=== PATIENT | male | born 1980 | race Hispanic/Latino ===

== ENCOUNTER 2019-04-30 15:56 | Emergency (ER) | payer SELFPAY ==
--- OUTSIDE RECORDS SUMMARY | 2019-04-30 15:59 | XMS REPORT ---
:1980 [facility] Address [address] [place] [address] Dr. Maza [address] [place] [id number] Care Team Providers Name Role Phone Unavailable Unavailable Unavailable Problems This patient has no known problems. Allergies, Adverse Reactions, Alerts This patient has no known allergies or adverse reactions. Medications This patient has no known medications.
[2019-04-30 16:38] LABS: Hematocrit 45.8 % (39.6-49.0); Lymphocytes % 28.4 % (15.3-44.8); MPV 9.6 fL (7.6-11.3); RBC Red Blood Cell Count 5.07 M/uL (4.33-5.43)
[2019-04-30 16:46] LABS: Protime INR 1.08
--- NOTE | 2019-04-30 17:00 | RAD REPORT ---
EXAM DESCRIPTION: Nabeel Single View04/30/2019 4:39 pm CLINICAL HISTORY: Chest pain COMPARISON: none FINDINGS: The lungs appear clear of acute infiltrate. The heart is normal size IMPRESSION: No acute abnormalities displayed
[2019-04-30 17:01] LABS: ALT/SGPT 100 U/L (12-78); AST/SGOT 42 U/L (15-37); Albumin 3.5 g/dL (3.4-5.0); Alkaline Phosphatase 32 U/L (45-117); BUN Blood Urea Nitrogen 19 mg/dL (7-18); Bicarbonate 23 mmol/L (21-32); Bilirubin Direct 0.2 mg/dL (0-0.2); Bilirubin Total 0.4 mg/dL (0.2-1.0); Glucose Level 114 mg/dL (74-106); Magnesium 2.2 mg/dL (1.8-2.4); Potassium 3.6 mmol/L (3.5-5.1); Sodium Level 141 mmol/L (136-145); Troponin (Emerg Dept Use Only) < 0.02 ng/mL (0.0-0.045)
[2019-04-30 17:07] LABS: NT PRO-BNP < 5 pg/mL (<125)
[2019-04-30] MEDS ORDERED: NA CHLORIDE 0.9% 1,000 ML ONE ×2 (17:25→20:43)
[2019-04-30] MEDS ORDERED: ONDANSETRON 4 MG/2 ML VIAL ONE (17:26)
[2019-04-30 18:08] LABS: Barbiturates NEGATIVE (NEGATIVE); Benzodiazepines NEGATIVE (NEGATIVE); Cocaine NEGATIVE (NEGATIVE); METHAMPHETAM POSITIVE (NEGATIVE); Methadone NEGATIVE (NEGATIVE); Opiates NEGATIVE (NEGATIVE); Phencyclidine NEGATIVE (NEGATIVE); THC Cannibis NEGATIVE (NEGATIVE)
[2019-04-30 18:28] LABS: Urine Blood NEGATIVE (NEG); Urine Glucose NEGATIVE (NEG); Urine Protein TRACE (NEG); Urine Specific Gravity >1.030 (1.005-1.030)
--- NOTE | 2019-04-30 23:27 | EDPHYS ---
Physician Documentation [facility] Name: Kristopher Garrett Jr Age: 38 yrs Sex: Male : 1980 Arrival Date: 04/30/2019 Time: 16:09 Bed 16 Private MD: ED Physician Elkin Banegas HPI: 04/29 16:19 This 38 yrs old Male presents to ER via Unassigned with complaints of chest cp pain. 16:19 The patient or guardian reports chest pain that is located primarily in the anterior cp aspect of left upper chest. The pain does not radiate. The chest pain is described as sharp. Duration: The patient or guardian reports a single episode, that is still ongoing, but improving. Severity of pain: in the emergency department the pain is a 4 / 10. EMS care prior to arrival includes: aspirin, nitroglycerin, x 1, with partial relief of the chest pain. Patient admits to injecting methamphetamine over the past several days, starting on Sunday. Denies use of methamphetamine today. Historical: - Allergies: 16:09 No Known Allergies; ls4 - Home Meds: 16:09 None [Active]; ls4 - PMHx: 16:09 hemorrhoids; ls4 - PSHx: 16:09 None; ls4 - Immunization history:: Adult Immunizations up to date. - Social history:: Smoking status: Patient denies any tobacco usage or history of. ROS: 16:30 Eyes: Negative for injury, pain, redness, and discharge. cp 16:30 Constitutional: Negative for body aches, chills, fever, poor PO intake. 16:30 ENT: Negative for drainage from ear(s), ear pain, sore throat, difficulty swallowing, difficulty handling secretions. 16:30 Cardiovascular: Positive for chest pain, of the anterior aspect of left upper chest, Negative for edema, palpitations. 16:30 Respiratory: Positive for shortness of breath, Negative for cough, wheezing. 16:30 Abdomen/GI: Negative for abdominal pain, nausea, vomiting, and diarrhea. 16:30 Back: Negative for radiated pain. 16:30 Neuro: Negative for altered mental status, headache, numbness, syncope, weakness. 16:30 All other systems are negative. Exam: 16:05 ECG was reviewed by the Attending Physician. cp 16:35 Constitutional: The patient appears in no acute distress, alert, awake, cp non-diaphoretic, non-toxic, well developed, well nourished. 16:35 Head/Face: Normocephalic, atraumatic. Eyes: Pupils equal round and reactive to light, cp extra-ocular motions intact. Lids and lashes normal. Conjunctiva and sclera are non-icteric and not injected. Cornea within normal limits. Periorbital areas with no swelling, redness, or edema. ENT: Nares patent. No nasal discharge, no septal abnormalities noted. Tympanic membranes are normal and external auditory canals are clear. Oropharynx with no redness, swelling, or masses, exudates, or evidence of obstruction, uvula midline. Mucous membranes moist. Neck: Trachea midline, no thyromegaly or masses palpated, and no cervical lymphadenopathy. Supple, full range of motion without nuchal rigidity, or vertebral point tenderness. No Meningismus. Chest/axilla: Normal chest wall appearance and motion. Nontender with no deformity. No lesions are appreciated. 16:35 Cardiovascular: Rate: normal, Rhythm: regular, Heart sounds: murmur, not appreciated, rub, not appreciated, gallop, not appreciated, Edema: is not appreciated, JVD: is not appreciated. 16:35 Respiratory: the patient does not display signs of respiratory distress, Respirations: normal, no use of accessory muscles, labored breathing, is not present, Breath sounds: are clear throughout, no decreased breath sounds, no wheezing. 16:35 Abdomen/GI: Inspection: abdomen appears normal, Bowel sounds: active, all quadrants, Palpation: abdomen is soft and non-tender, in all quadrants, rebound tenderness, is not appreciated, involuntary guarding, is not appreciated. 16:35 Back: pain, is absent, ROM is normal. 16:35 Skin: cellulitis, is not appreciated, no rash present. 16:35 Neuro: Orientation: to person, place \T\ time. Mentation: is normal, Cerebellar function: is grossly normal, Motor: moves all fours, strength is normal, Sensation: is normal. Vital Signs: 16:09 BP 115 / 78; Pulse 76; Resp 14; Pulse Ox 99% on R/A; Weight 117.93 kg; Height 5 ft. 9 ls4 in. (175.26 cm); Pain 3/10; 16:09 BP 118 / 77; Pulse 78; Resp 14; Pulse Ox 99% on R/A; Pain 3/10; ls4 20:00 BP 122 / 74; Pulse 76; Resp 14; Pulse Ox 99% on R/A; Pain 0/10; ls4 22:00 BP 117 / 66; Pulse 72; Resp 14; Pulse Ox 99% on R/A; Pain 0/10; ls4 23:00 BP 118 / 72; Pulse 72; Resp 14; Pulse Ox 99% on R/A; Pain 0/10; ls4 03/12 00:05 BP 122 / 70; Pulse 72; Resp 16; Temp 98.0(O); Pulse Ox 99% on R/A; Pain 0/10; ls4 06:18 BP 139 / 101; Pulse 79; Resp 16; Temp 97.7; Pulse Ox 99% on R/A; Pain 0/10; aa1 04/29 16:09 Body Mass Index 38.39 (117.93 kg, 175.26 cm) ls4 MDM: 04/29 16:15 Patient medically screened. cp 16:30 Differential diagnosis: abnormal EKG, acute myocardial infarction, acute pericarditis, cp cholecystitis, Cholelithiasis pancreatitis, pleurisy, pneumonia, pneumothorax, stable angina, unstable angina. 20:15 Data reviewed: vital signs, nurses notes, lab test result(s), EKG, radiologic studies, cp plain films. 20:15 Response to treatment: the patient's symptoms have markedly improved after treatment. cp 23:20 ED course: Patient evaluated by [facility] due to statements made that he was cp attempting to overdose on methamphetamine over the weekend. Inpatient treatment recommended. 04/29 16:10 Order name: Basic Metabolic Panel; Complete Time: 17:10 la04/29 17:10 Interpretation: Normal except: CL 110; GLUC 114; BUN 19; GFR 65. 04/29 16:10 Order name: CBC with Diff; Complete Time: 16:54 la04/29 16:54 Interpretation: Reviewed. 04/29 16:10 Order name: LFT's; Complete Time: 17:10 la 04/29 17:10 Interpretation: Normal except: AST 42; ALT 100; ALK 32; A/G 1.0. 04/29 16:10 Order name: Magnesium; Complete Time: 17:10 la04/29 16:10 Order name: NT PRO-BNP; Complete Time: 17:10 la04/29 16:10 Order name: PT-INR; Complete Time: 17:10 la04/29 16:10 Order name: Troponin (emerg Dept Use Only); Complete Time: 17:10 nc04/29 16:10 Order name: XRAY Chest (1 view); Complete Time: 17:10 nc04/29 16:10 Order name: UDS; Complete Time: 18:12 la04/29 18:12 Interpretation: Normal except: METHAMPHETAMINE POSITIVE. cp 04/29 16:16 Order name: ETOH Level; Complete Time: 17:28 cp 04/29 16:16 Order name: Asprin; Complete Time: 17:28 cp 04/29 16:16 Order name: Tylenol Level; Complete Time: 17:28 cp 04/29 18:21 Order name: Urine Dipstick--Ancillary (enter results); Complete Time: 18:53 nc04/29 18:54 Interpretation: Normal except: USPGR >1.030. cp 04/29 20:08 Order name: Troponin I; Complete Time: 20:44 cp 04/29 20:44 Interpretation: Within normal limits: TROP < 0.02. cp 04/29 16:10 Order name: EKG; Complete Time: 16:13 nc04/29 16:10 Order name: Cardiac monitoring; Complete Time: 16:52 nc04/29 16:10 Order name: EKG - Nurse/Tech; Complete Time: 16:52 nc04/29 16:10 Order name: IV Saline Lock; Complete Time: 16:52 nc04/29 16:10 Order name: Labs collected and sent; Complete Time: 16:52 nc04/29 16:10 Order name: O2 Per Protocol; Complete Time: 16:53 nc04/29 16:10 Order name: O2 Sat Monitoring; Complete Time: 16:53 nc04/29 20:08 Order name: EKG; Complete Time: 20:08 cp 04/30 07:21 Order name: Diet Regular; Complete Time: 07:21 5 04/30 07:39 Order name: Diet Finger Food; Complete Time: 07:40 5 04/30 12:09 Order name: Diet Finger Food; Complete Time: 12:09 mg2 04/30 14:12 Order name: Diet Finger Food; Complete Time: 14:15 mh5 04/29 17:29 Order name: Vital Signs; Complete Time: 17:47 cp 04/29 17:29 Order name: Blood Pressure Recheck: bilateral upper extremity; Complete Time: 17:47 cp 04/29 20:08 Order name: EKG - Nurse/Tech; Complete Time: 20:33 cp EC:05 Rate is 111 beats/min. Rhythm is regular. PA interval is normal. QRS interval is cp normal. QT interval is normal. Interpreted by me. Reviewed by me. Administered Medications: 17:05 Drug: Zofran (Ondansetron) 4 mg Route: IVP; Site: left antecubital; ls4 20:34 Follow up: Response: No adverse reaction ls4 17:06 Drug: NS 0.9% 1000 ml Route: IV; Rate: 1 bolus; Site: left antecubital; ls4 18:10 Follow up: IV Status: Completed infusion; IV Intake: 1000ml ls4 20:07 Not Given (Patient Refused): fentaNYL (PF) 25 mcg IVP once; RASS on ADMIN: Combtv4, ls4 Very Agttd3, Agttd2, Rstlss1, AlertClm0, Drwsy-1, Lt Sdtn-2, Mod Sdtn-3, Dp Sdtn-4, UnArsble-5 20:40 Drug: NS 0.9% 1000 ml Route: IV; Rate: 1000 ml/hr; Site: right antecubital; ls4 21:40 Follow up: IV Status: Completed infusion; IV Intake: 100ml ls4 Disposition: 04/30 07:09 Co-signature as Attending Physician, Elkin Banegas MD I agree with the assessment and kdr plan of care. Disposition: 05/01/19 15:57 Discharged to Home. Impression: Suicidal ideations, Suicide attempt, Abuse of non-psychoactive substances. - Condition is Stable. - Discharge Instructions: Suicidal Feelings: How to Help Yourself, Helping Someone Who is Suicidal, Nonspecific Chest Pain, [id number], Stress and Stress Management. - Medication Reconciliation Form, Thank You Letter form. - Follow up: Private Physician; When: 1 - 2 days; Reason: If symptoms return, Further diagnostic work-up, Recheck today's complaints, Continuance of care, Re-evaluation by your physician. - Problem is new. - Symptoms are resolved. Signatures: Dispatcher [employer] Elkin Estrada MD MD kdr Ad Sanders, DENNIS-C YARD SPECIALIST-Cla1 Tay Alonso PA PA cp Hardik Carranza, RN RN mg2 Lana Waggoner RN RN ls4 Corrections: (The following items were deleted from the chart) 15:53 04/29 23:26 04/30/2019 23:26 Transfer ordered to Psych Facility. Diagnosis is Suicidal kdr ideations. Reason for transfer: Higher level of care. Accepting physician is doctor. Condition is Stable. Problem is new. Symptoms have improved. cp 04/30 15:56 15:53 04/30/2019 23:26 Transfer ordered to Psych Facility. Diagnosis is Suicidal kdr ideations; Abuse of non-psychoactive substances. Reason for transfer: Higher level of care. Accepting physician is doctor. Condition is Stable. Problem is new. Symptoms have improved. kdr 16:11 15:57 05/01/2019 15:57 Discharged to Home. Impression: Suicidal ideations; Suicide mg2 attempt; Abuse of non-psychoactive substances. Condition is Stable. Forms are Medication Reconciliation Form, Thank You Letter, Antibiotic Education, Prescription Opioid Use. Follow up: Private Physician; When: 1 - 2 days; Reason: If symptoms return, Further diagnostic work-up, Recheck today's complaints, Continuance of care, Re-evaluation by your physician. Problem is new. Symptoms are resolved. kdr
--- NOTE | 2019-04-30 23:27 | ER ---
Nurse's Notes [facility] Name: Kristopher Garrett Jr Age: 38 yrs Sex: Male : 1980 Arrival Date: 04/30/2019 Time: 16:09 Bed 16 Private MD: Diagnosis: Suicidal ideations;Suicide attempt;Abuse of non-psychoactive substances Presentation: 04/29 16:09 Chief complaint: Patient states: PT STATES HE HAS CHEST PAIN AFTER DOING LARGE AMOUNTS ls4 OF METHAMPHETAMINE ALL WEEKEND. PT TOLD EMS THAT HE WAS ONLY DOING THE METH SO THAT HE COULD KILL HIMSELF. PT STATES TO ME THAT HE WAS SUICIDAL SO HE DID METH, BUT NOW HIS CHEST HURTS AND HE IS WORRIED HE IS HAVING A HEART ATTACK. Coronavirus screen: The patient has NOT traveled to a country currently being monitored by the CDC within the last 14 days. Proceed with normal triage procedures. Ebola Screen: Unable to complete the Ebola screening because:. 16:09 Method Of Arrival: EMS: [facility] ls4 16:09 Initial Sepsis Screen: Does the patient meet any 2 criteria? No. Patient's initial ls4 sepsis screen is negative. Does the patient have a suspected source of infection? No. Patient's initial sepsis screen is negative. Risk Assessment: Do you want to hurt yourself or someone else? Patient reports no desire to harm self or others. Other: PT STATES HE IS NOT SUICIDAL OR HOMICIDAL AT THIS TIME, BUT HE DID HAVE THOUGHTS LAST WEEKEND SO HE DID LARGE AMOUNTS OF METH A MEANS TO KILL HIMSELF. NOW HE PRESENTS WITH CHEST PAIN AND IS ASKING TO BE TRANSFERRED TO [facility] FOR SUICIDAL THOUGHTS. 16:09 Acuity: HUNTER 2 ls4 16:09 Care prior to arrival: IV initiated. 20 GA, in the right antecubital area. ls4 Triage Assessment: 16:09 General: Appears in no apparent distress. comfortable, Behavior is calm, cooperative. ls4 Pain: Complains of pain in anterior aspect of left upper chest Pain does not radiate. Quality of pain is described as sharp, shooting. Neuro: No deficits noted. Cardiovascular: No deficits noted. Cardiovascular: Reports chest pain, Denies diaphoresis, fatigue, lightheadedness, nausea, palpitations, shortness of breath, syncope, vomiting, Capillary refill < 3 seconds Clubbing of nail beds is absent JVD is absent Patient's skin is warm and dry. Rhythm is regular. Respiratory: Respiratory effort is even, unlabored, Respiratory pattern is regular. GI: No deficits noted. : No deficits noted. Derm: No deficits noted. Derm: Skin is intact, Skin is dry, Skin is normal, Skin temperature is warm. Musculoskeletal: No deficits noted. Historical: - Allergies: 16:09 No Known Allergies; ls4 - Home Meds: 16:09 None [Active]; ls4 - PMHx: 16:09 hemorrhoids; ls4 - PSHx: 16:09 None; ls4 - Immunization history:: Adult Immunizations up to date. - Social history:: Smoking status: Patient denies any tobacco usage or history of. Screenin:09 Abuse screen: Denies threats or abuse. Denies injuries from another. Nutritional ls4 screening: No deficits noted. Tuberculosis screening: No symptoms or risk factors identified. Fall Risk None identified. Assessment: 18:46 General: SEE TRIAGE NOTE SITTER AT BEDSIDE. SUICIDE PRECAUTIONS INTITIATED. SEE PAPER ls4 FLOW SHEET, BELONGINGS LIST. PT IN PAPER GOWN. PT IN NO DISTRESS. SMILING AND ENGAGING WITH GUESTS AND STAFF. . 20:00 Reassessment: Patient appears in no apparent distress at this time. Patient and/or ls4 family updated on plan of care and expected duration. Pain level reassessed. Patient is alert, oriented x 3, equal unlabored respirations, skin warm/dry/pink. Patient denies pain at this time. 21:00 Reassessment: Patient appears in no apparent distress at this time. Patient and/or ls4 family updated on plan of care and expected duration. Pain level reassessed. Patient is alert, oriented x 3, equal unlabored respirations, skin warm/dry/pink. Patient denies pain at this time. 22:00 Reassessment: Patient appears in no apparent distress at this time. Patient and/or ls4 family updated on plan of care and expected duration. Pain level reassessed. Patient is alert, oriented x 3, equal unlabored respirations, skin warm/dry/pink. 23:00 Reassessment: Patient appears in no apparent distress at this time. Patient and/or ls4 family updated on plan of care and expected duration. Pain level reassessed. Patient is alert, oriented x 3, equal unlabored respirations, skin warm/dry/pink. 23:59 Reassessment: Patient appears in no apparent distress at this time. Patient and/or ls4 family updated on plan of care and expected duration. Pain level reassessed. Patient is alert, oriented x 3, equal unlabored respirations, skin warm/dry/pink. 04/30 00:01 Reassessment: SITTER AT BEDSIDE. FAMILY AT BEDSIDE. Reassessment: SITTER AT BEDSIDE. ls4 FAMILY IN ROOM. 02:45 Reassessment: Patient appears in no apparent distress at this time. Patient and/or aa1 family updated on plan of care and expected duration. Pain level reassessed. Patient is alert, oriented x 3, equal unlabored respirations, skin warm/dry/pink. Pt moved to room 16 from Pod 1 at this time. Sitter at bedside. Pt resting quietly. Awaiting psych transfer. 03:45 Reassessment: Patient appears in no apparent distress at this time. Sitter at bedside. aa1 Pt resting quietly. Awaiting psych transfer. 04:45 Reassessment: Patient appears in no apparent distress at this time. Sitter at bedside. aa1 Pt resting quietly. Awaiting psych transfer. 05:45 Reassessment: Patient appears in no apparent distress at this time. Sitter at bedside. aa1 Pt resting quietly. Awaiting psych transfer. 07:00 General: Appears in no apparent distress. uncomfortable, Behavior is calm, cooperative, jl7 appropriate for age. Pain: Denies pain. Neuro: Level of Consciousness is awake, alert, obeys commands, Oriented to person, place, time, situation. Cardiovascular: Patient's skin is warm and dry. Respiratory: Airway is patent Respiratory effort is even, unlabored, Respiratory pattern is regular, symmetrical. Derm: Skin is pink, warm \T\ dry. 08:00 Reassessment: Patient appears in no apparent distress at this time. No changes from jl7 previously documented assessment. Patient and/or family updated on plan of care and expected duration. Pain level reassessed. Patient is alert, oriented x 3, equal unlabored respirations, skin warm/dry/pink. 09:00 Reassessment: Patient appears in no apparent distress at this time. No changes from jl7 previously documented assessment. Patient and/or family updated on plan of care and expected duration. Pain level reassessed. Patient is alert, oriented x 3, equal unlabored respirations, skin warm/dry/pink. 10:00 Reassessment: Patient appears in no apparent distress at this time. patient sleeping on mg2 bed. 11:03 Reassessment: Patient appears in no apparent distress at this time. Patient and/or mg2 family updated on plan of care and expected duration. Pain level reassessed. Patient is alert, oriented x 3, equal unlabored respirations, skin warm/dry/pink. 12:04 Reassessment: Patient appears in no apparent distress at this time. Patient is alert, mg2 oriented x 3, equal unlabored respirations, skin warm/dry/pink. sitter at bedside. 13:00 Reassessment: Patient appears in no apparent distress at this time. Patient and/or mg2 family updated on plan of care and expected duration. Pain level reassessed. Patient is alert, oriented x 3, equal unlabored respirations, skin warm/dry/pink. 13:58 Reassessment: Patient appears in no apparent distress at this time. Patient and/or mg2 family updated on plan of care and expected duration. Pain level reassessed. Patient is alert, oriented x 3, equal unlabored respirations, skin warm/dry/pink. 15:00 Reassessment: Patient appears in no apparent distress at this time. Patient is alert, mg2 oriented x 3, equal unlabored respirations, skin warm/dry/pink. Vital Signs: 04/29 16:09 BP 115 / 78; Pulse 76; Resp 14; Pulse Ox 99% on R/A; Weight 117.93 kg; Height 5 ft. 9 ls4 in. (175.26 cm); Pain 3/10; 16:09 BP 118 / 77; Pulse 78; Resp 14; Pulse Ox 99% on R/A; Pain 3/10; ls4 20:00 BP 122 / 74; Pulse 76; Resp 14; Pulse Ox 99% on R/A; Pain 0/10; ls4 22:00 BP 117 / 66; Pulse 72; Resp 14; Pulse Ox 99% on R/A; Pain 0/10; ls4 23:00 BP 118 / 72; Pulse 72; Resp 14; Pulse Ox 99% on R/A; Pain 0/10; ls4 04/30 00:05 BP 122 / 70; Pulse 72; Resp 16; Temp 98.0(O); Pulse Ox 99% on R/A; Pain 0/10; ls4 06:18 BP 139 / 101; Pulse 79; Resp 16; Temp 97.7; Pulse Ox 99% on R/A; Pain 0/10; aa1 03 16:09 Body Mass Index 38.39 (117.93 kg, 175.26 cm) ls4 ED Course: 04/29 16:09 Patient arrived in ED. bd 16:09 Tay Alonso PA is PHCP. cp 16:09 Elkin Banegas MD is Attending Physician. cp 16:09 Patient has correct armband on for positive identification. Bed in low position. Side ls4 rails up X 1. Valuables inventory done. Given to family. SITTER SHANTELL AT BEDSIDE. naval gunfire liaison officer on. Pulse ox on. NIBP on. Sitter at bedside. 16:09 No provider procedures requiring assistance completed. Inserted saline lock: 20 gauge ls4 in left antecubital area, using aseptic technique. Patient maintains SpO2 saturation greater than 95% on room air. 16:32 Lana Waggoner, RN is Primary Nurse. ls4 16:41 XRAY Chest (1 view) In Process Unspecified. EDMS 17:21 pt belongings went home with juwan Pt sister. ms 18:11 Triage completed. ls4 18:20 Patient BELONGINGS REMOVED. PT NEXT TO NURSES STATION IN VIEW. FAMILY AT BEDSIDE. ls4 SITTER AT BEDSIDE 1520. 20:31 called [facility] spoke to Lor she will be sending a screener to see patient. mw2 03 10:[facility] a [facility]. still waiting on discharges. 11:03 Assisted to bathroom. mg2 15:46 notified [facility] to send screener back to reassess pt. bd 16:11 IV discontinued, intact, bleeding controlled, No redness/swelling at site. Pressure mg2 dressing applied. Administered Medications: 04/29 17:05 Drug: Zofran (Ondansetron) 4 mg Route: IVP; Site: left antecubital; ls4 20:34 Follow up: Response: No adverse reaction ls4 17:06 Drug: NS 0.9% 1000 ml Route: IV; Rate: 1 bolus; Site: left antecubital; ls4 18:10 Follow up: IV Status: Completed infusion; IV Intake: 1000ml ls4 20:07 Not Given (Patient Refused): fentaNYL (PF) 25 mcg IVP once; RASS on ADMIN: Combtv4, ls4 Very Agttd3, Agttd2, Rstlss1, AlertClm0, Drwsy-1, Lt Sdtn-2, Mod Sdtn-3, Dp Sdtn-4, UnArsble-5 20:40 Drug: NS 0.9% 1000 ml Route: IV; Rate: 1000 ml/hr; Site: right antecubital; ls4 21:40 Follow up: IV Status: Completed infusion; IV Intake: 100ml ls4 Intake: 18:10 IV: 1000ml; Total: 1000ml. ls4 21:40 IV: 100ml; Total: 1100ml. ls4 Outcome: 23:26 ER care complete, transfer ordered by MD. cp 04/30 15:57 Discharge ordered by MD. kdr 16:10 Discharged to home ambulatory, with family. mg2 16:10 Condition: stable 16:10 Discharge instructions given to patient, family, Instructed on discharge instructions, follow up and referral plans. Demonstrated understanding of instructions, follow-up care. 16:11 Patient left the ED. mg2 Signatures: Dispatcher [employer] EDMS Sabine Means Alissa, RN RN aa1 Elkin Banegas MD MD kdr Villarreal, Maria ms Tay Alonso, ROCIO PA cp Susy Aguero RN RN jl7 Trudi Byrnes 2 Hardik Carranza RN RN mg2 Lana Waggoner RN RN ls4 Corrections: (The following items were deleted from the chart) 00:03 04/29 18:46 General: SEE TRIAGE NOTE . ls4 ls4
--- NOTE | 2019-05-01 08:52 | EKG ---
Test Date: 2019-04-30 Test Time: 15:51:42 Armored Machine Operator: LASHELL MEASUREMENT RESULTS: Intervals: Rate: 111 CO: 136 QRSD: 96 QT: 342 QTc: 465 [place]: P: 57 CO: 136 QRS: 69 T: -7 INTERPRETIVE STATEMENTS: Sinus tachycardia Abnormal QRS-T angle, consider primary T wave abnormality Abnormal ECG No previous ECG available for comparison Electronically Signed On 05-01-19 08:50:41 CDT by Po Ellis
--- NOTE | 2019-05-01 08:52 | EKG ---
Test Date: 2019-04-30 Test Time: 20:13:09 Rural Electrification Engineer: LANI MEASUREMENT RESULTS: Intervals: Rate: 85 ME: 146 QRSD: 104 QT: 370 QTc: 440 [place]: P: 55 ME: 146 QRS: 55 T: -5 INTERPRETIVE STATEMENTS: Normal sinus rhythm Nonspecific T wave abnormality Abnormal ECG No previous ECG available for comparison Electronically Signed On 05-01-19 08:50:33 CDT by Po Ellis
[2019-05-01 17:12] VITALS: O2SAT 99
[2019-05-01 17:21] VITALS: BP 139/101; TEMP 97.7
== END 2019-05-01 16:11 | disposition home or self-care (01) ==
LOC: ER 15:56
DX: T43.622A Poisoning by amphetamines, intentional self-harm, initial encounter (principal); R07.9 Chest pain, unspecified; F55.8 Abuse of other non-psychoactive substances
CPT/HCPCS: 36415; 71045; 80048; 80076; 80307; 80320; 80329; 81003; 83735; 83880; 84484; 85025; 85610; 93005; 96361; 96374; 99285; J2405; J7030

== ENCOUNTER → 2023-04-10 | Emergency (ER) | payer SELFPAY ==
[~2023-04-10] MED LIST: HYDRALAZINE HCL 20 MG/ML VIAL ONE; LORazepam 2 MG/ML VIAL ONE; METOPROLOL TARTRATE 5 MG/5 ML INJ IV ONE; NA CHLORIDE 0.9% 2,000 ML ONE
[2023-04-10 20:36] LABS: Absolute Lymphocytes (CBC) 3.6 K/uL (0.7-4.9); Hematocrit 48.2 % (39.6-49.0); Lymphocytes % 34.9 % (15.3-44.8); MCV 90.9 fL (80-100); MPV 8.8 fL (7.6-11.3); Platelets 316 thou/uL (152-406); RBC Red Blood Cell Count 5.31 M/uL (4.33-5.43)
[2023-04-10 20:41] LABS: Protime INR 1.02
[2023-04-10 21:01] LABS: Bilirubin Direct 0.1 mg/dL (0-0.2); Bilirubin Indirect, Calculated 0.4 mg/dL (0.2-0.8); Bilirubin Total 0.5 mg/dL (0.2-1.0); Magnesium 2.1 mg/dL (1.6-2.4); Potassium 3.8 mEq/L (3.5-5.1); Protein, Total 8.1 g/dL (6.4-8.2)
[2023-04-10 21:11] LABS: Troponin High Sensitivity 38.7 pg/mL (<58.9)
--- NOTE | 2023-04-10 21:13 | RAD REPORT ---
EXAM DESCRIPTION: Nabeel Single View04/10/2023 9:04 pm CLINICAL HISTORY: Chest pain COMPARISON: 2019 FINDINGS: The lungs appear clear of acute infiltrate. The heart is normal size IMPRESSION: No acute abnormalities displayed
[2023-04-10 22:56] LABS: Barbiturates NEGATIVE (NEGATIVE); Benzodiazepines NEGATIVE (NEGATIVE); Cocaine POSITIVE (NEGATIVE); METHAMPHETAM POSITIVE (NEGATIVE); Methadone NEGATIVE (NEGATIVE); Opiates NEGATIVE (NEGATIVE); Phencyclidine NEGATIVE (NEGATIVE); THC Cannibis NEGATIVE (NEGATIVE)
--- NOTE | 2023-04-11 00:35 | ER ---
Nurse's Notes [facility] Name: Kristopher Garrett Jr Age: 42 yrs Sex: Male : 1980 Arrival Date: 04/10/2023 Time: 20:09 Bed 2 Private MD: Diagnosis: Methamphetamine overdose, cocaine abuse, stimulant overdose Presentation: 04/10 20:13 Chief complaint: EMS states: pt got pulled over by PD, admitted to using Meth 1 gram. rv denies SOB/CP at this time. tachycardia and hypertensive. PD at bedside. Coronavirus screen: At this time, the client does not indicate any symptoms associated with coronavirus-19. Ebola Screen: No symptoms or risks identified at this time. Initial Sepsis Screen: Does the patient meet any 2 criteria? No. Patient's initial sepsis screen is negative. Does the patient have a suspected source of infection? No. Patient's initial sepsis screen is negative. Risk Assessment: Do you want to hurt yourself or someone else? Patient reports no desire to harm self or others. Onset of symptoms was April 10, 2023. 20:13 Method Of Arrival: EMS: [facility] rv 20:13 Method Of Arrival: Law Enforcement: [facility] [employer] rv 20:13 Acuity: HUNTER 2 rv Triage Assessment: 20:15 General: Appears in no apparent distress. Behavior is calm, cooperative. Pain: Denies rv pain. Neuro: Level of Consciousness is awake, alert, obeys commands, Oriented to person, place, time, situation. Cardiovascular: Capillary refill < 3 seconds Patient's skin is warm and dry. Cardiovascular: Denies chest pain. Respiratory: Airway is patent Respiratory effort is even, unlabored, Breath sounds are clear bilaterally. Denies shortness of breath labored breathing. GI: No signs and/or symptoms were reported involving the gastrointestinal system. : No signs and/or symptoms were reported regarding the genitourinary system. Derm: Skin is intact. Historical: - Allergies: 20:15 No Known Allergies; rv - PMHx: 20:15 hemorrhoids; Hypertensive disorder; rv - PSHx: 20:15 None; rv - Immunization history:: Adult Immunizations up to date. - Social history:: Smoking status: unknown. Screenin:16 [facility] ED Fall Risk Assessment (Adult) History of falling in the last 3 months, rv including since admission No falls in past 3 months (0 pts) Confusion or Disorientation No (0 pts) Intoxicated or Sedated Yes (3 pts) Impaired Gait No (0 pts) Mobility Assist Device Used No (0 pt) Altered Elimination No (0 pt) Score/Fall Risk Level 3 or more points = High Risk Oriented to surroundings, Maintained a safe environment, Educated pt \T\ family on fall prevention, incl call for assistance when getting out of bed, Assessed \T\ reinforced patient's understanding of fall precautions. Abuse screen: Denies threats or abuse. Denies injuries from another. Nutritional screening: No deficits noted. Tuberculosis screening: No symptoms or risk factors identified. Assessment: 20:20 General: Appears distressed, uncomfortable, well groomed, well developed, well me1 nourished, Behavior is cooperative, appropriate for age, restless, Reports got pulled over and ate 1 gram of methamphetamine. Denies CP. 20:20 General: Reports diaphoretic. Pain: Denies pain. Neuro: Level of Consciousness is me1 awake, alert, obeys commands, Oriented to person, place, time, situation, Appropriate for age. Cardiovascular: Capillary refill < 3 seconds Patient's skin is warm and dry. Rhythm is sinus tachycardia. Cardiovascular: Respiratory: Airway is patent Trachea midline Respiratory effort is even, unlabored, Respiratory pattern is regular, symmetrical. 21:15 Reassessment: Patient states feeling better. Appears more relaxed than when admitted. . me1 Vital Signs: 20:13 BP 195 / 123; Pulse 138; Resp 22; Temp 99.3; Pulse Ox 98% on R/A; Weight 99.79 kg; rv Height 5 ft. 9 in. ; Pain 0/10; 20:15 BP 216 / 103; Pulse 139; Resp 25; Pulse Ox 97% on R/A; me1 20:29 Temp 100.3(O); ty 20:30 BP 217 / 125; Pulse 140; Resp 20; Pulse Ox 97% on R/A; me1 20:38 BP 198 / 104; Pulse 139; Resp 16; Pulse Ox 97% ; me1 20:52 BP 190 / 87; Pulse 137; Resp 22; Pulse Ox 97% on R/A; me1 21:00 BP 153 / 100; Pulse 137; Resp 25; Pulse Ox 98% on R/A; me1 22:00 BP 157 / 101; Pulse 130; Resp 22; Pulse Ox 96% on R/A; rv 23:00 BP 159 / 115; Pulse 119; Resp 18; Pulse Ox 100% on R/A; me1 02 00:13 BP 167 / 108; Pulse 111; Resp 18; Temp 99; Pulse Ox 99% ; rv 04/10 20:13 Body Mass Index 32.49 (99.79 kg, 175.26 cm) rv 04/10 20:13 Pain Scale: Adult rv ED Course: 04/10 20:12 Patient arrived in ED. rv1 20:13 Don Karimi MD is Attending Physician. sp4 20:15 Triage completed. rv 20:15 Arm band placed on right wrist. rv 20:16 Patient has correct armband on for positive identification. Client placed on continuous rv cardiac and pulse oximetry monitoring. NIBP monitoring applied. body shop supervisor on. 20:16 No provider procedures requiring assistance completed. rv 20:19 Inserted saline lock: 20 gauge in right forearm, using aseptic technique. Blood ap3 collected. 20:20 Provided Education on: POC. Verbalized understanding. . me1 20:21 Renea Poole, RN is Primary Nurse. me1 21:06 XRAY Chest (1 view) In Process Unspecified. EDMS 22:38 Urine Drug Screen Sent. me1 22:38 Alcohol Level Sent. me1 22:45 IV discontinued, intact, bleeding controlled, No redness/swelling at site. Pressure me1 dressing applied, Accidentally discontinued by patient while trying to use the urinal. Administered Medications: 20:43 Drug: Ativan IVP 4 mg IVP once Route: IVP; Site: right forearm; me1 20:52 Follow up: Response: No adverse reaction me1 20:43 Drug: NS 0.9% IV 1000 ml IV at 1 bolus Per protocol; 1000 mL bolus Route: IV; Rate: 1 me1 bolus; Site: right forearm; 22:49 Follow up: IV Status: Completed infusion; IV Intake: 1000ml me1 20:43 Drug: NS 0.9% IV 1000 ml IV at 125 ml/hr continuous Route: IV; Rate: 125 ml/hr; Site: md1 right forearm; 23:04 Follow up: IV Status: Completed infusion me1 20:43 Drug: hydrALAZINE IVP 20 mg IVP once Route: IVP; Site: right forearm; me1 20:52 Follow up: Response: No adverse reaction me1 21:17 Drug: Metoprolol IVP 5 mg IVP once; Hold for SBP <100 or HR <60. Route: IVP; Site: [place] right forearm; 21:41 Follow up: Response: No adverse reaction me1 23:04 Drug: Metoprolol IVP 5 mg IVP once; Hold for SBP <100 or HR <60. Route: IVP; Site: [place] right antecubital; 04/11 00:38 Follow up: Response: No adverse reaction; Marked relief of symptoms rv 04/10 23:04 Drug: NS 0.9% IV 1000 ml IV at 1 bolus Per protocol; 1000 mL bolus Route: IV; Rate: 1 me1 bolus; Site: right antecubital; 04/11 00:38 Follow up: IV Status: Completed infusion; IV Intake: 1000ml rv Medication: 04/10 20:16 VIS not applicable for this client. rv Intake: 22:49 IV: 1000ml; Total: 1000ml. md1 04/11 00:38 IV: 1000ml; Total: 2000ml. rv Outcome: 00:34 Discharge ordered by sp4 00:38 Discharged to Law Enforcement rv 00:38 Condition: improved 00:38 Discharge instructions given to patient, Instructed on discharge instructions, follow up and referral plans. Demonstrated understanding of instructions, follow-up care, 01:11 Patient left the ED. rv Signatures: Dispatcher [employer] Melina Koo RN RN ap3 Sourav Kimball RN RN rv Villegas, Rebecca rv1 Don Karimi MD MD sp4 Renea Poole RN RN me1 Jesus Werner
--- NOTE | 2023-04-11 00:35 | EDPHYS ---
Physician Documentation [facility] Name: Kristopher Garrett Jr Age: 42 yrs Sex: Male : 1980 Arrival Date: 04/10/2023 Time: 20:09 Bed 2 Private MD: ED Physician Don Karimi HPI: 04/10 20:14 This 42 yrs old Male presents to ER via Unassigned with complaints of General sp4 complaint . 21:12 42-year-old male presents with methamphetamine overdose. . sp4 Historical: - Allergies: 20:15 No Known Allergies; rv - PMHx: 20:15 hemorrhoids; Hypertensive disorder; rv - PSHx: 20:15 None; rv - Immunization history:: Adult Immunizations up to date. - Social history:: Smoking status: unknown. ROS: 21:15 Constitutional: Negative for fever, chills, and weight loss, sp4 21:15 All other systems are negative, Exam: 21:14 ECG was reviewed by the Attending Physician. EKG time 2017. Sinus tachycardia at 135 sp4 otherwise normal EKG 21:15 Constitutional: This is a well developed, well nourished patient who is awake, alert, sp4 tachycardic Head/Face: Normocephalic, atraumatic. Eyes: Pupils equal round and reactive to light, extra-ocular motions intact. Lids and lashes normal. Conjunctiva and sclera are not injected. Cornea within normal limits. Periorbital areas with no swelling, redness, or edema. ENT: Nares patent. No nasal discharge, no septal abnormalities noted. Tympanic membranes are normal and external auditory canals are clear. Oropharynx with no redness, swelling, or masses, exudates, or evidence of obstruction, uvula midline. Mucous membranes moist. Neck: Trachea midline, no thyromegaly or masses palpated, and no cervical lymphadenopathy. Supple, full range of motion without nuchal rigidity, or vertebral point tenderness. Chest/axilla: Normal chest wall appearance and motion. Nontender with no deformity. No lesions are appreciated. Cardiovascular: Regular tachycardia . No gallops, murmurs, or rubs. Normal PMI, no JVD. No pulse deficits. Respiratory: Lungs have equal breath sounds bilaterally, clear to auscultation and percussion. No rales, rhonchi or wheezes noted. No increased work of breathing, no retractions or nasal flaring. Abdomen/GI: Soft, with normal bowel sounds. No distension or tympany. No guarding or rebound. No evidence of tenderness throughout. Back: No spinal tenderness. No costovertebral tenderness. Skin: Warm, dry with normal turgor. Normal color with no rashes, no lesions, and no evidence of cellulitis. MS/ Extremity: Pulses equal, no cyanosis. Neurovascular intact. Full, normal range of motion. Neuro: Awake and alert, GCS 15, oriented to person, place, time, and situation. Cranial nerves II-XII grossly intact. Motor strength 5/5 in all extremities. Sensory grossly intact. Psych: Awake, alert, with orientation to person, place and time. Behavior, mood, and affect are within normal limits Vital Signs: 20:13 BP 195 / 123; Pulse 138; Resp 22; Temp 99.3; Pulse Ox 98% on R/A; Weight 99.79 kg; rv Height 5 ft. 9 in. ; Pain 0/10; 20:15 BP 216 / 103; Pulse 139; Resp 25; Pulse Ox 97% on R/A; me1 20:29 Temp 100.3(O); ty 20:30 BP 217 / 125; Pulse 140; Resp 20; Pulse Ox 97% on R/A; me1 20:38 BP 198 / 104; Pulse 139; Resp 16; Pulse Ox 97% ; me1 20:52 BP 190 / 87; Pulse 137; Resp 22; Pulse Ox 97% on R/A; me1 21:00 BP 153 / 100; Pulse 137; Resp 25; Pulse Ox 98% on R/A; me1 22:00 BP 157 / 101; Pulse 130; Resp 22; Pulse Ox 96% on R/A; rv 23:00 BP 159 / 115; Pulse 119; Resp 18; Pulse Ox 100% on R/A; me1 04/11 00:13 BP 167 / 108; Pulse 111; Resp 18; Temp 99; Pulse Ox 99% ; rv 04/10 20:13 Body Mass Index 32.49 (99.79 kg, 175.26 cm) rv 04/10 20:13 Pain Scale: Adult rv MDM: 04/10 20:58 Patient medically screened. sp4 22:36 ED course: EXAM DESCRIPTION: Nabeel Ruelas View04/10/2023 9:04 pm CLINICAL HISTORY: sp4 Chest pain COMPARISON: 2019 FINDINGS: The lungs appear clear of acute infiltrate. The heart is normal size IMPRESSION: No acute abnormalities displayed. 04/11 00:35 Differential Diagnosis altered mental status, sepsis, flu, Stimulant overdose . Data sp4 reviewed: vital signs, nurses notes, EMS record, lab test result(s), EKG, radiologic studies, plain films. Consideration of Admission/Observation Escalation of care including admission/observation considered. ED course: Patient was given IV Ativan, IV hydration, and he has felt improved. Heart rate down to 110. Pressure somewhat elevated but is much better. Patient at this time desires to sign out of the emergency room and go to retirement. Since patient has improved at this time we see no impediment for discharge. Advised patient to discontinue cocaine and methamphetamine abuse.. 04/10 20:24 Order name: Basic Metabolic Panel; Complete Time: 21:11 4 04/10 20:24 Order name: CBC with Diff; Complete Time: 21:11 sp4 04/10 20:24 Order name: LFT's; Complete Time: 21:11 sp4 04/10 20:24 Order name: Magnesium; Complete Time: 21:11 sp4 04/10 20:24 Order name: NT PRO-BNP; Complete Time: 21:11 sp4 04/10 20:24 Order name: PT-INR; Complete Time: 21:11 sp4 04/10 20:24 Order name: Troponin HS; Complete Time: 21:11 sp4 04/10 20:24 Order name: Urine Drug Screen; Complete Time: 22:57 sp4 04/10 20:25 Order name: Alcohol Level; Complete Time: 23:56 sp4 04/10 20:27 Order name: Acetaminophen; Complete Time: 22:57 4 04/10 20:27 Order name: Salicylate; Complete Time: 22:57 4 04/10 20:24 Order name: XRAY Chest (1 view); Complete Time: 21:17 sp4 04/10 20:24 Order name: EKG; Complete Time: 20:25 sp4 04/10 20:24 Order name: Cardiac monitoring; Complete Time: 20:24 4 04/10 20:24 Order name: EKG - Nurse/Tech; Complete Time: 20:24 sp4 04/10 20:24 Order name: IV Saline Lock; Complete Time: 20:24 sp4 04/10 20:24 Order name: Labs collected and sent; Complete Time: 20:30 sp4 04/10 20:24 Order name: O2 Per Protocol; Complete Time: 20:24 sp4 04/10 20:24 Order name: O2 Sat Monitoring; Complete Time: 20:24 sp4 EC/20 21:14 Rate is 135 beats/min. Rhythm is regular, Sinus tachycardia. QRS [place] is Normal. OR sp4 interval is normal. QRS interval is normal. QT interval is normal. No Q waves. T waves are Normal. No ST changes noted. Clinical impression: No evidence of ischemia. Interpreted by me. Reviewed by me. Administered Medications: 20:43 Drug: Ativan IVP 4 mg IVP once Route: IVP; Site: right forearm; me1 20:52 Follow up: Response: No adverse reaction me1 20:43 Drug: NS 0.9% IV 1000 ml IV at 1 bolus Per protocol; 1000 mL bolus Route: IV; Rate: 1 me1 bolus; Site: right forearm; 22:49 Follow up: IV Status: Completed infusion; IV Intake: 1000ml me1 20:43 Drug: NS 0.9% IV 1000 ml IV at 125 ml/hr continuous Route: IV; Rate: 125 ml/hr; Site: [facility] [place] right forearm; 23:04 Follow up: IV Status: Completed infusion me1 20:43 Drug: hydrALAZINE IVP 20 mg IVP once Route: IVP; Site: right forearm; me1 20:52 Follow up: Response: No adverse reaction me1 21:17 Drug: Metoprolol IVP 5 mg IVP once; Hold for SBP <100 or HR <60. Route: IVP; Site: [facility] [place] right forearm; 21:41 Follow up: Response: No adverse reaction me1 23:04 Drug: Metoprolol IVP 5 mg IVP once; Hold for SBP <100 or HR <60. Route: IVP; Site: [facility] [place] right antecubital; 04/11 00:38 Follow up: Response: No adverse reaction; Marked relief of symptoms rv 04/10 23:04 Drug: NS 0.9% IV 1000 ml IV at 1 bolus Per protocol; 1000 mL bolus Route: IV; Rate: 1 me1 bolus; Site: right antecubital; 04/11 00:38 Follow up: IV Status: Completed infusion; IV Intake: 1000ml rv Disposition Summary: 04/11/23 00:34 Discharge Ordered Notes: We advise you discontinue use of methamphetamine and cocaine Location: Home sp4 Problem: new sp4 Symptoms: have improved sp4 Condition: Stable sp4 Diagnosis - Methamphetamine overdose, cocaine abuse, stimulant overdose sp4 Followup: sp4 - With: Private Physician - When: 7 - 10 days - Reason: Recheck today's complaints Discharge Instructions: - Discharge Summary Sheet sp4 - Methamphetamines Use Disorder sp4 Forms: - Patient Portal Instructions sp4 Signatures: Dispatcher [employer] Sourav Clemente RN RN Don Luciano MD MD sp4 Renea Poole RN RN me1
[2023-04-11 02:13] VITALS: BP 158/89; TEMP 98; O2SAT 97
== END ==
LOC: ER 20:09
DX: T43.651A Poisoning by methamphetamines accidental (unintentional), initial encounter (principal)
CPT/HCPCS: 36415; 71045; 80048; 80076; 80143; 80179; 80307; 82077; 83735; 83880; 84484; 85025; 85610; 93005; J0360; J7030